=== PATIENT | male | born 1975 | race Caucasian/White ===

== ENCOUNTER 2017-03-09 17:29 | Emergency (ER) | payer BC, OTHER ==
[~2017-03-09] VITALS: Ht 165.1 cm; Wt 100.0 kg
[~2017-03-09 17:29] MED LIST: ADVIL200 MG PO; AMOXICILLIN/CL875 MG PO; ASPIRIN LOW81 M1 PO; AUGMENTIN875TAB OR; BACTROBAN2 % EX; BENICAR20 MG PO; CEPHALEXIN500 MG PO; FLEXERIL PO; LIPITOR20 MG PO; LOPRESS HCT1 TAB OR; METOPRL/HCTZ1 TA1 PO; ROCEPHIN 2250 MG/VIA IM; VERAPAMIL120 M2 PO; VERAPAMIL120 MG PO; VERAPAMIL240 M1 OR; VIBRATAB100 MG PO; ZYRTEC10 M1 PO; [UNRECOGNIZED DRUG - OTHER] PO
[2017-03-09 18:31] LABS: HEMATOCRIT 53.3 % (39.0-50.0); IMMATURE GRANULOCYTES 0.1 % (0.0-1.0); MEAN CELL VOLUME 88.2 fL CALC (80.0-100.0); MEAN CORPUSCULAR HGB 31.5 pG CALC (26.0-32.0); MEAN CORPUSCULAR HGB CONC 35.6 g/L CALC (32.0-36.0); NEUT# 3.8 thou/uL (1.82-7.42); RED BLOOD COUNT 6.04 mill/uL (4.70-6.10); RED CELL DISTRI WIDTH 10.9 % (11.5-15.5)
[2017-03-09 18:45] LABS: ALKALINE PHOSPHATASE 81 u/l (38-126); AMYLASE 38 u/l (30-110); ANION GAP 21 (6-22 (CALC)); BUN 22 mg/dL (9-20); BUN/CREATININE RATIO 29 (12-20 (CALC)); CALCIUM 10.2 mg/dL (8.4-10.2); CARBON DIOXIDE 20 mmol/l (22-30); CHLORIDE 102 mmol/l (95-108); CREATININE 0.7 mg/dL (0.7-1.3); GFR > 60 ML/MIN (>=60 (CALC)); GFR FOR AFR.AMER. > 60 ML/MIN (>=60 (CALC)); GLUCOSE 249 mg/dL (75-110); LIPASE 53 u/l (23-300); POTASSIUM 4.8 mmol/l (3.5-5.1); SGOT/AST 81 u/l (17-59); SGPT/ALT 144 u/l (21-72); SODIUM 139 mmol/l (137-146); TOTAL PROTEIN 8.5 g/dL (6.3-8.2)
[2017-03-09 18:57] LABS: MYOGLOBIN 19 ng/mL (0 - 121)
[2017-03-09 19:32] LABS: URINE BLOOD DIPSTICK NEGATIVE (NEGATIVE); URINE CLARITY CLEAR; URINE COLOR YELLOW; URINE GLUCOSE - DIPSTICK >=1000 mg/dL (NEGATIVE); URINE KETONE TRACE mg/dL (NEGATIVE); URINE LEUK ESTERASE NEGATIVE (NEGATIVE); URINE NITRITE - DIPSTICK NEGATIVE (Negative); URINE PH 5.5 (4.5-8.0); URINE PROTEIN - DIPSTICK 100 mg/dL (NEG-TRACE); URINE SPECIFIC GRAVITY >=1.030
[2017-03-09 19:37] LABS: URINE BILIRUBIN - DIPSTICK NEGATIVE (NEGATIVE)
[2017-03-09] MEDS ORDERED: NEXIUM40 M1 PO (19:41)
[2017-03-09] MEDS ORDERED: BENTYL10 MG PO (19:41)
[2017-03-09] MEDS ORDERED: ULTRAM50 M1 PO (19:43)
[2017-03-09 19:46] LABS: URINE MUCUS FEW hpf (NONE-FEW); URINE RBC 0-2 RBC/hpf (0-5); URINE WBC 0-2 WBC/hpf (0-5)
[2017-03-09 20:07] VITALS: BP 125/71
== END 2017-03-09 20:07 | disposition home or self-care (01) | DRG 392 ==
LOC: ED 17:29
DX: K52.9 Noninfective gastroenteritis and colitis, unspecified (principal); I10 Essential (primary) hypertension
CPT/HCPCS: S0164

== ENCOUNTER 2019-10-27 | Emergency (ER) | payer BC ==
[~2019-10-27] MED LIST changes: +BENTYL10 MG PO; +NEXIUM40 M1 PO; +ULTRAM50 M1 PO
[2019-10-27] MEDS ORDERED: LISINOP/HCTZ1 TA2 PO (00:26)
[2019-10-27] MEDS ORDERED: ELIQUIS5 MG PO (00:26)
[2019-10-27] MEDS ORDERED: DIGOXIN0.125 MG PO (00:28)
[2019-10-27] MEDS ORDERED: HYDRALAZINE50 MG PO (00:28)
[2019-10-27] MEDS ORDERED: METFORMIN500 MG PO (00:29)
[2019-10-27] MEDS ORDERED: OMEPRAZOLE DR20 MG PO (00:31)
[2019-10-27] MEDS ORDERED: AMOX/K CLAV875 M1 PO (02:20)
[2019-10-27] MEDS ORDERED: PERCOCET 5/325M1 TAB PO (02:20)
== END 2019-10-27 02:50 | disposition home or self-care (01) | DRG 153 ==
DX: J32.9 Chronic sinusitis, unspecified (principal); I10 Essential (primary) hypertension; I48.91 Unspecified atrial fibrillation; E11.9 Type 2 diabetes mellitus without complications; Z79.84 Long term (current) use of oral hypoglycemic drugs

== ENCOUNTER 2022-12-14 08:49 | Emergency (ER) | payer BC ==
[~2022-12-14] VITALS: Ht 165.1 cm; Wt 83.0 kg
[~2022-12-14 08:49] MED LIST changes: +AMOX/K CLAV875 M1 PO; +DIGITEK0.25 M1 PO; +DIGOXIN0.125 MG PO; +ELIQUIS5 MG PO; +FENOFIBRATE54 MG PO; +HYDRALAZINE50 MG PO; +LISINOP/HCTZ1 TA1 PO; +LISINOP/HCTZ1 TA2 PO; +METFORMIN HCL1000 M1 PO; +METFORMIN500 MG PO; +METOPROLOL TAR100 MG PO; +OMEPRAZOLE DR20 MG PO; +OMEPRAZOLE20 MG PO; +OZEMPIC 8 MG/3M1 INJ SC; +OZEMPIC4 MG SC; +PERCOCET 5/325M1 TAB PO; +VERAPAMIL240 M1 PO; +ZYRTEC10 MG PO
[2022-12-14 09:00] VITALS: BP 103/81
[2022-12-14 09:16] LABS: BASO% 0.2 % (0-3); HEMATOCRIT 49.6 % (39.0-50.0); HEMOGLOBIN 17.4 g/dl (14.0-18.0); IMMATURE GRANULOCYTES 0.1 % (0.0-5.0); LYMPH% 16.4 % (15-41); MEAN CELL VOLUME 88.7 fL CALC (80.0-100.0); MEAN CORPUSCULAR HGB 31.1 pG CALC (26.0-32.0); MEAN CORPUSCULAR HGB CONC 35.1 g/dL CAL (32.0-36.0); MONO% 8.3 % (2-13); NEUT# 8.87 thou/uL (1.82-7.42); RED BLOOD COUNT 5.59 mill/uL (4.70-6.10); RED CELL DISTRI WIDTH 10.9 % (11.5-15.5)
[2022-12-14 09:28] LABS: ALBUMIN 4.6 g/dL (3.2-5.0); ALKALINE PHOSPHATASE 63 u/l (38-126); BUN 20 mg/dL (9-20); BUN/CREATININE RATIO 24 (12-20 (CALC)); CHLORIDE 100 mmol/l (95-108); CREATININE 0.8 mg/dL (0.7-1.3); GFR FOR AFR.AMER. > 60 ML/MIN (>=60 (CALC)); GFR OTHER RACES > 60 ML/MIN (>=60 (CALC)); LIPASE 88 u/l (23-300); SGOT/AST 29 u/l (17-59); SODIUM 138 mmol/l (137-146); TOTAL PROTEIN 7.3 g/dL (6.3-8.2)
[2022-12-14 09:30] LABS: ANION GAP 16 (6-22 (CALC)); BILIRUBIN, TOTAL 1.1 mg/dL (0.2-1.3); CARBON DIOXIDE 26 mmol/l (22-30)
[2022-12-14 09:32] LABS: URINE BLOOD DIPSTICK NEGATIVE (NEGATIVE); URINE COLOR YELLOW; URINE GLUCOSE - DIPSTICK 500 mg/dL (NEGATIVE); URINE KETONE TRACE mg/dL (NEGATIVE); URINE LEUK ESTERASE NEGATIVE (NEGATIVE); URINE PROTEIN - DIPSTICK TRACE mg/dL (NEG-TRACE); URINE SPECIFIC GRAVITY 1.025; URINE UROBILINOGEN - DIPSTICK 0.2 E.U./dL (0.2)
[2022-12-14 09:37] LABS: URINE BILIRUBIN - DIPSTICK SMALL (NEGATIVE); URINE NITRITE - DIPSTICK NEGATIVE (Negative)
[2022-12-14] MEDS ORDERED: IMODIUM A-D2 M3 PO (10:49)
[2022-12-14 10:57] VITALS: BP 103/81
== END 2022-12-14 11:06 | disposition home or self-care (01) | DRG 392 ==
LOC: ED 08:49
PROVIDERS: Family Medicine
DX: R19.7 Diarrhea, unspecified (principal); E11.9 Type 2 diabetes mellitus without complications; I10 Essential (primary) hypertension; I48.91 Unspecified atrial fibrillation; D69.6 Thrombocytopenia, unspecified; E78.00 Pure hypercholesterolemia, unspecified; Z79.84 Long term (current) use of oral hypoglycemic drugs

== ENCOUNTER 2024-04-02 14:31 | Emergency (ER) | payer BC ==
[~2024-04-02] VITALS: Ht 165.1 cm; Wt 92.0 kg
[2024-04-02] VITALS (8 sets, daily range): BP systolic 103–130; BP diastolic 64–91
[~2024-04-02 14:31] MED LIST changes: +AMIODARONE HYD200 M1; +IMODIUM A-D2 M3 PO; +MAGNESIUM400 M1; +MOUNJARO5 MG SC; +PEPCID40 MG PO; +TAM75CAP PO
[2024-04-02] MEDS ORDERED: METHOCARBAMOL 500 MG/TAB PO ONE (14:50)
[2024-04-02] MEDS ORDERED: KETOROLAC TROMETHAMINE 30 MG/ML SDV IM ONE (14:50)
[2024-04-02] MEDS ORDERED: DEXAMETHASONE SOD. PHOSPHATE 10 MG/ML VIAL IM ONE (14:50)
[2024-04-02] MEDS ORDERED: MEDDOSEPAK PO (16:18)
[2024-04-02] MEDS ORDERED: NAPROXEN500 MG PO (16:18)
[2024-04-02] MEDS ORDERED: METHOCARBAMOL500 MG PO (16:18)
== END 2024-04-02 16:33 | disposition home or self-care (01) | DRG 552 ==
LOC: ED 14:31
DX: M54.50 Low back pain, unspecified (principal); I10 Essential (primary) hypertension; I48.91 Unspecified atrial fibrillation; E11.9 Type 2 diabetes mellitus without complications; Z79.84 Long term (current) use of oral hypoglycemic drugs

== ENCOUNTER 2024-04-09 21:33 | Emergency (ER) | payer BC ==
[~2024-04-09] VITALS: Ht 165.1 cm; Wt 85.0 kg
[2024-04-09] VITALS (20 sets, daily range): BP systolic 75–118; BP diastolic 46–89
[~2024-04-09 21:33] MED LIST changes: +MEDDOSEPAK PO; +METHOCARBAMOL500 MG PO; +NAPROXEN500 MG PO
[2024-04-09] MEDS ORDERED: ADENOSINE 6MG (3 MG/ML) SYR IV ONE ×2 (21:40→21:50)
[2024-04-09] MEDS ORDERED: SODIUM CHLORIDE 0.9% 1,000 ML IV ONE (21:40)
[2024-04-09] MEDS ORDERED: DILTIAZEM HCL 25 MG/5 ML SDV IV ONE (21:46)
[2024-04-09] MEDS ORDERED: dilTIAZem HCL 50 MG/10 ML SDV IV ONE (21:50)
[2024-04-09] MEDS ORDERED: DILTIAZEM HCL 125 MG in SODIUM CHLORIDE 0.9% 100 ML IV ONE (21:50)
[2024-04-09] MEDS ORDERED: SODIUM CHLORIDE 0.9% 500 ML IV ONE (21:50)
[2024-04-09 22:05] LABS: BASO% 0.2 % (0-3); EOS% 0.8 % (0-8); HEMOGLOBIN 18.6 g/dl (14.0-18.0); IMMATURE GRANULOCYTES 0.5 % (0.0-5.0); LYMPH% 42.6 % (15-41); MEAN CELL VOLUME 88.7 fL CALC (80.0-100.0); MEAN CORPUSCULAR HGB 31.7 pG CALC (26.0-32.0); MEAN CORPUSCULAR HGB CONC 35.8 g/dL CAL (32.0-36.0); MONO% 8.6 % (2-13); NEUT# 7.74 thou/uL (1.82-7.42); NEUT% 47.3 % (42-76); RED BLOOD COUNT 5.86 mill/uL (4.70-6.10); RED CELL DISTRI WIDTH 10.9 % (11.5-15.5)
[2024-04-09] MEDS ORDERED: METOPROLOL TARTRATE 50 MG/TAB PO ONE (22:05)
[2024-04-09] MEDS ORDERED: LACTATED RINGER'S 1,000 ML IV ONE (22:10)
[2024-04-09 22:19] LABS: ALBUMIN 4.3 g/dL (3.2-5.0); BILIRUBIN, TOTAL 0.6 mg/dL (0.2-1.3); CREATININE 0.9 mg/dL (0.7-1.3)
[2024-04-09 23:00] LABS: URINE BILIRUBIN - DIPSTICK Negative (NEGATIVE); URINE BLOOD DIPSTICK Negative (NEGATIVE); URINE GLUCOSE - DIPSTICK 500 mg/dL (NEGATIVE); URINE KETONE Negative (NEGATIVE); URINE LEUK ESTERASE Negative (NEGATIVE); URINE NITRITE - DIPSTICK Negative (Negative); URINE PH 5.5 (4.5-8.0); URINE PROTEIN - DIPSTICK Negative (NEG-TRACE); URINE UROBILINOGEN - DIPSTICK 0.2 E.U./dL (0.2)
[2024-04-09 23:01] LABS: URINE COLOR Yellow
[2024-04-09] MEDS ORDERED: METOPROLOL TAR100 MG PO (23:40)
[2024-04-09] MEDS ORDERED: FAMOTIDINE40 M1 PO (23:49)
== END 2024-04-09 23:51 | disposition home or self-care (01) | DRG 310 ==
LOC: ED 21:33
PROVIDERS: Family Medicine
DX: I47.10 Supraventricular tachycardia, unspecified (principal); I10 Essential (primary) hypertension; I48.91 Unspecified atrial fibrillation; E11.9 Type 2 diabetes mellitus without complications; E78.5 Hyperlipidemia, unspecified; D69.6 Thrombocytopenia, unspecified; Z79.01 Long term (current) use of anticoagulants; Z79.84 Long term (current) use of oral hypoglycemic drugs; Z79.85 Long-term (current) use of injectable non-insulin antidiabetic drugs